=== PATIENT | female | born 1975 | race Caucasian/White ===

== ENCOUNTER → 2016-06-27 | Outpatient (REF) | payer OTHER ==
[~2016-06-27] MED LIST: FIBECHW4 PO; IBUP200T2 PO; MAXA10TA14 PO; MAXA5TAB10 PO; TOPA50TA PO; TRAZ50TA2 PO; [UNRECOGNIZED DRUG - OTHER] PO; flexeril PO
[2016-06-27 17:12] LABS: PERCENT SATURATION 16.6 % (13.2-37.4); TOTAL IRON BINDING CAPACITY 289 UG/DL (250-450)
[2016-06-30 10:10] LABS: CONTROL LINE HPYORI INT CTR LINE PRESENT
== END ==
LOC: M LAB REF 16:23
PROVIDERS: ATTEND Internal Medicine
DX: R53.83 Other fatigue (principal); K29.70 Gastritis, unspecified, without bleeding

== ENCOUNTER → 2016-07-04 | Outpatient (REF) | payer OTHER ==
[2016-07-08 00:06] LABS: ENDOMYSIAL ABY IgA Negative (Negative)
== END ==
LOC: M LAB REF 13:17
PROVIDERS: ATTEND Internal Medicine
DX: K29.70 Gastritis, unspecified, without bleeding (principal); K58.9 Irritable bowel syndrome, unspecified; R14.0 Abdominal distension (gaseous)

== ENCOUNTER → 2016-12-01 | Outpatient (REF) | payer OTHER ==
[2016-12-01 18:24] LABS: CALCIUM OXALATE CRYSTALS MODERATE
== END ==
LOC: M LAB REF 16:42
PROVIDERS: ATTEND Physician Assistant Medical
DX: N39.0 Urinary tract infection, site not specified (principal)

== ENCOUNTER 2017-01-26 19:48 | Emergency (ER) | payer OTHER ==
[~2017-01-26] VITALS: Ht 170.2 cm; Wt 90.9 kg
[2017-01-26] MEDS ORDERED: LINZ145C PO (20:00)
[2017-01-26] MEDS ORDERED: plaquenil PO (20:00)
[2017-01-26] MEDS ORDERED: DULO30CA PO (20:00)
[2017-01-26] MEDS ORDERED: ZANA4CAP PO (20:00)
[2017-01-26] MEDS ORDERED: ONDANSETRON 4MG/2ML VIAL (J2405) IV ONE (20:30)
[2017-01-26] MEDS ORDERED: NS 500 ML IV ONE (20:30)
[2017-01-26] MEDS ORDERED: KETOROLAC 30 MG/ML VIAL (J1885) IV ONE (20:30)
[2017-01-26] MEDS ORDERED: GASTROGRAFIN SOLUTION 30ML (Q9963) PO ONE ×2 (21:00)
[2017-01-26 21:06] LABS: BASO % 0.6 % (0.0-1.0); EOS # 0.2 K/mm3 (0.0-0.50); EOS % 1.8 % (0.0-3.0); LARGE UNSTAINED CELL # 0.2 K/mm3 (0.0-0.4); LYMPH # 2.1 K/mm3 (1.5-4.5); LYMPH % 22.5 % (24.0-44.0); MEAN CORPUSCULAR HEMOGLOBIN 31.2 pg (27.0-33.0); MEAN CORPUSCULAR HGB CONC 33.9 g/dl (32.0-36.5); MEAN CORPUSCULAR VOLUME 92.2 fl (80.0-96.0); MONO # 0.4 K/mm3 (0.0-0.8); MONO % 4.6 % (0.0-5.0); NEUTROPHILS # 6.4 K/mm3 (1.8-7.7); NEUTROPHILS % 68.5 % (36.0-66.0); PLATELET COUNT, AUTOMATED 305 k/mm3 (150-450); RED CELL DISTRIBUTION WIDTH 11.9 % (11.5-14.5); WHITE BLOOD COUNT 9.4 K/mm3 (4.0-10.0)
[2017-01-26 21:13] LABS: ALBUMIN 3.5 GM/DL (3.2-5.2); ALBUMIN/GLOBULIN RATIO 1.17 (1.00-1.93); ALKALINE PHOSPHATASE 70 U/L (45-117); ALT/SGPT 18 U/L (12-78); AMYLASE 83 U/L (25-115); ANION GAP 9 MEQ/L (8-16); AST/SGOT 10 U/L (15-37); BILIRUBIN,DIRECT < 0.1 MG/DL (0.0-0.2); BILIRUBIN,TOTAL 0.2 MG/DL (0.2-1.0); BLOOD UREA NITROGEN 21 MG/DL (7-18); CALCIUM LEVEL 8.8 MG/DL (8.5-10.1); CARBON DIOXIDE LEVEL 23 MEQ/L (21-32); CHLORIDE LEVEL 112 MEQ/L (98-107); CREATININE FOR GFR 0.98 MG/DL (0.55-1.02); GLOMERULAR FILTRATION RATE > 60.0 (>58); GLUCOSE, FASTING 110 MG/DL (70-105); POTASSIUM SERUM 3.8 MEQ/L (3.5-5.1); SODIUM LEVEL 144 MEQ/L (136-145); TOTAL PROTEIN 6.5 GM/DL (6.4-8.2)
[2017-01-26 21:29] LABS: CONTROL LINE UCG INT CTR LINE PRESENT
[2017-01-26 21:34] LABS: MICROSCOPIC INDICATED? MAN YES (NO)
[2017-01-26] MEDS ORDERED: ISOVUE-370 76% 100ML VIAL (Q9967) As Ordered ONE (22:29)
[2017-01-26 22:33] LABS: MICROSCOPIC EXAM PERFORMED
[2017-01-26 22:34] LABS: BACTERIA, URINE NONE SEEN; HYALINE CAST, URINE NONE SEEN /lpf (0-1); RBC, URINE 0-1 /hpf (0-3); SQUAMOUS EPITHELIAL CELL URINE SMALL AMOUNT /hpf (SMALL AMT); WBC, URINE 0-1 /hpf (0-3)
--- NOTE | 2017-01-26 23:50 | REPUSA ---
CLINICAL HISTORY: Abdominal pain. TECHNIQUE: Multiple axial, sagittal and coronal CT images were obtained through the abdomen and pelvi s after administration of oral and intravenous contrast material. COMMENTS: The liver is of uniform attenuation without mass or defect. There is no intra or extrahepatic biliary ductal dilatation. The spleen is normal. The gallbladder contains a 10 mm cholesterol stone. The ingram creas is of normal contour and attenuation characteristics. There is no evidence of adrenal mass. Both kidneys demonstrate prompt and equal nephrograms. The kidneys are normal in size, shape and conf iguration. There is no evidence of renal or ureteral mass. No renal or ureteral calculi are identifie d. There is no hydroureter or hydronephrosis. No evidence for appendicitis. There is no bowel wall thickening. No evidence for small or large leslie l obstruction. There is no evidence of abdominal ascites or lymphadenopathy. There is no evidence of intrinsic or extrinsic bladder mass. There is no pelvic ascites or lymphadeno anival. Images of the lung bases show no evidence of pleural or parenchymal mass. There are no pleural effusi ons. The bony structures are free of lytic or blastic lesions. The uterus and ovaries are unremarkable. Small hiatal hernia is noted. IMPRESSION: Gallstone. Consider correlation with right upper quadrant ultrasound. Small hiatal hernia Thank you for your kind referral of this patient.
[2017-01-27] MEDS ORDERED: ZOFR4TAB3 PO (00:12)
[2017-01-27] MEDS ORDERED: ONDANSETRON 4 MG ORAL DISINTEGRATING TAB (S0181) PO ONE (00:15)
[2017-01-27 00:17] VITALS: BP 145/83
[2017-04-01] MEDS ORDERED: MELO15TA4 PO (08:55)
[2017-04-01] MEDS ORDERED: HYDR-643 PO (08:55)
[2017-04-01] MEDS ORDERED: PREG50CA PO (08:55)
[2017-04-01] MEDS ORDERED: LACT10SO29 PO (08:55)
== END 2017-01-27 00:30 | disposition home or self-care (01) ==
LOC: M ED 19:48
DX: K80.20 Calculus of gallbladder without cholecystitis without obstruction (principal); K44.9 Diaphragmatic hernia without obstruction or gangrene; R10.13 Epigastric pain; R11.0 Nausea; R51 Headache; M79.7 Fibromyalgia; M06.9 Rheumatoid arthritis, unspecified; Z79.899 Other long term (current) drug therapy
CPT/HCPCS: 74177; 80048; 80076; 81000; 81025; 82150; 83690; 84703; 85025; 96374; 96375; 99283; J1885; J2405; Q9963; Q9967

== ENCOUNTER → 2017-02-23 | Outpatient (CLI) | payer OTHER ==
[~2017-02-23] MED LIST changes: +DULO30CA PO; +HYDR-643 PO; +LACT10SO29 PO; +LINZ145C PO; +MELO15TA4 PO; +PREG50CA PO; +ZANA4CAP PO; +ZOFR4TAB3 PO; +plaquenil PO
--- NOTE | 2017-02-23 14:08 | REPMRS ---
Patient History The patient states she had a clinical breast exam in 02/2017. Patient is nulliparous. No known family history of cancer. Taking hormonal contraceptives for 16 years. Digital Woman Screen Mammo: February 23, 2017 - Exam #: [id number] Bilateral CC and MLO view(s) were taken. Technologist: Acacia Higginbotham, Technologist Prior study comparison: February 28, 2016, digital woman screen mammo performed at [facility]. December 19, 2014, bilateral digital mammo screening bilat, performed at [facility]. FINDINGS: There are scattered fibroglandular densities. There has been no change in the appearance of the mammogram from the prior studies. There is a mild amount of scattered fibroglandular density which is fairly symmetric. There is no interval development of dominant mass, architectural distortion, or clustered microcalcification suggestive of malignancy. ASSESSMENT: BI-RADS/ACR category 1 mammogram. Negative. Recommendation Routine screening mammogram in 1 year (for women over age 40). This mammogram was interpreted with the aid of an FDA-approved computer-aided dectection system. Electronically Signed By: Philip Reyes MD 02/23/17 [id number]
== END ==
LOC: M WHC 10:27
PROVIDERS: ATTEND Nurse Practitioner Family
DX: Z12.31 Encounter for screening mammogram for malignant neoplasm of breast (principal)
CPT/HCPCS: G0202; G0463

== ENCOUNTER → 2017-03-10 | Outpatient (CLI) | payer OTHER ==
--- NOTE | 2017-03-11 06:50 | REP ---
Clinical: Right upper quadrant pain with history of cholelithiasis. Technique: Real time benton scale ultrasound examination using curved array transducer. Findings: Gallbladder demonstrates a fixed 12 mm gallstone at the neck of the gallbladder. The gallbladder is otherwise normal and without wall thickening or pericholecystic fluid. No biliary ductal dilatation is appreciated and the common bile duct measures 5.8 mm diameter. Pain with transducer pressure noted during examination. Fatty infiltration to the liver is appreciated without focal hepatic lesion identified. Visualized portions of the pancreas are unremarkable. The right kidney is normal in reniform shape without hydronephrosis and measures 11.9 x 6.1 x 4.4 cm. No ascites. Impression: 1. 12 mm gallbladder fixed at the gallbladder neck with suggestions for positive sonographic Jensen's sign. No biliary ductal dilatation, gallbladder wall thickening or pericholecystic fluid appreciated. Correlation is required and by ultrasound findings suggest biliary colic. 2. Fatty infiltration to the liver. See Signed by Bang Toro MD 03/11/2017 06:42 A
== END ==
LOC: M RAD 07:44
PROVIDERS: ATTEND Surgery
DX: K80.20 Calculus of gallbladder without cholecystitis without obstruction (principal)

== ENCOUNTER 2017-04-10 07:38 | Day surgery (SDC) | payer OTHER ==
[~2017-04-10] VITALS: Ht 172.7 cm; Wt 93.4 kg
[2017-04-10] MEDS ORDERED: PROPOFOL 200 MG/20 ML VIAL As Ordered ONE ×2 (07:58→10:33)
[2017-04-10] MEDS ORDERED: NEOSTIGMINE 10 MG/10 ML VIAL (J2710) As Ordered ONE (07:58)
[2017-04-10] MEDS ORDERED: LIDOCAINE 2% INJ 100 MG/5 ML SDV (FOR ANES.) As Ordered ONE (07:58)
[2017-04-10] MEDS ORDERED: HYDROmorphone HCL 2 MG/ML 1ML VIAL (J1170) As Ordered ONE (07:58)
[2017-04-10] MEDS ORDERED: fentaNYL 100 MCG/2 ML INJECTION (J3010) As Ordered ONE ×2 (07:58→11:24)
[2017-04-10] MEDS ORDERED: GLYCOPYRROLATE INJ 0.2 MG/ML 2 ML VIAL As Ordered ONE (07:58)
[2017-04-10] MEDS ORDERED: ROCURONIUM BROMIDE 50 MG/5 ML VIAL/SYRINGE As Ordered ONE (07:58)
[2017-04-10] MEDS ORDERED: MIDAZOLAM INJ 2 MG/2 ML VIAL (J2250) As Ordered ONE (07:58)
[2017-04-10] MEDS ORDERED: ONDANSETRON 4MG/2ML VIAL (J2405) As Ordered ONE ×2 (07:59→14:56)
[2017-04-10] MEDS ORDERED: dexameTHASONE 4 MG/ML 1ML VIAL (J1100) As Ordered ONE (07:59)
[2017-04-10] MEDS ORDERED: LR 1,000 ML IV ONE (08:00)
[2017-04-10] MEDS ORDERED: LIDOCAINE 1% MDV 20ML VIAL SQ PRN (08:00)
[2017-04-10 08:30] LABS: CONTROL LINE UCG INT CTR LINE PRESENT
[2017-04-10] MEDS ORDERED: BUPIVACAINE HCL 0.25% 30 ML VIAL As Ordered ONE (09:07)
[2017-04-10] MEDS ORDERED: PHENYLephrine HCL 500 MCG/5 ML (100MCG/ML) SYRINGE (J2370) As Ordered ONE (10:33)
[2017-04-10] MEDS ORDERED: LR 1,000 ML IV SCH (11:15)
[2017-04-10] MEDS ORDERED: MORPHINE 2 MG/ML 1ML SYRINGE IV PRN (11:15)
[2017-04-10] MEDS ORDERED: ONDANSETRON 4MG/2ML VIAL (J2405) IV PRN (11:15)
[2017-04-10] MEDS: fentaNYL 100 MCG/2 ML INJECTION (J3010) IV PRN ×4 (11:26→11:41)
[2017-04-10] MEDS ORDERED: NORCO, ANEXSIA 5/325MG TABLET (HYDROcodone/ACETAMINOPHEN) PO PRN (11:30)
[2017-04-10] MEDS ORDERED: PERCOCET 5MG/325MG TAB As Ordered ONE ×2 (12:27→14:00)
[2017-04-10] MEDS: PERCOCET 5MG/325MG TAB PO PRN ×2 (12:28→14:03)
[2017-04-10 15:15] VITALS: BP 131/74
--- NOTE | 2017-04-14 00:26 | RO ---
DATE OF PROCEDURE: 04/10/2017 PREOPERATIVE DIAGNOSIS: Symptomatic gallstones. POSTOPERATIVE DIAGNOSIS: Symptomatic gallstones. PROCEDURE PERFORMED: Laparoscopic cholecystectomy. SURGEON: Dr. Parveen Blankenship ANESTHESIA: General. INDICATIONS FOR THE PROCEDURE: Patient is a 42-year-old woman with a history of episodic upper abdominal pain. A recent ultrasound revealed cholelithiasis, and she is now for a laparoscopic cholecystectomy. DESCRIPTION OF PROCEDURE: The patient was placed supine on the operating table. The patient was placed under general endotracheal anesthesia. The patient's abdomen was prepped and draped in a sterile fashion. 0.25% Marcaine was infiltrated at each of the trocar sites prior to insertion. A short supraumbilical midline incision was made and deepened through the abundant subcutaneous fat to the fascia. The fascia was opened along the midline, and the peritoneum was opened bluntly. A Evelyn cannula was inserted, and the abdomen was insufflated with carbon dioxide gas. The laparoscope was placed. Initial examination showed a normal appearing liver. The gallbladder was fairly high up above the edge of the costal margin. The visualized portions of the small and large bowel appeared normal. The patient was tilted to a reverse Trendelenburg position and rolled slightly to the left. Two 5 mm trocars were placed in the right upper quadrant and a single 5 mm trocar was placed in the left upper quadrant. Graspers were inserted. The fundus of the gallbladder was grasped and elevated. The gallbladder did not appear acutely inflamed. Dissection was carried out at the gallbladder neck. The cystic duct and cholecystic artery were both readily identified. The artery was clipped and divided first. The cystic duct was then cleared of a small amount of surrounding tissue and then doubly clipped and divided. The gallbladder was then dissected free from the gallbladder bed using cautery dissection. Toward the fundus, the gallbladder was punctured and a small amount of bile was spilled into the subhepatic space. The gallbladder was completely removed from the gallbladder bed and placed in an Endopouch. The right upper quadrant was then irrigated. Inspection of the gallbladder bed showed no sign of bleeding and no bile leak. Thorough irrigation of the right upper quadrant was performed until the irrigant removed returned clear. Final inspection again showed no evidence of bleeding or bile leak. The patient was returned to a flat position. The abdomen was deflated and the trocars were removed. The gallbladder was recovered through the Evelyn site and sent for permanent pathology. There was at least one stone 6-8 mm in diameter palpable within the gallbladder. The fascia at the Evelyn site was then closed with interrupted simple sutures of #2-0 Vicryl. The skin incisions were all closed with buried Vicryl and Steri-Strips. Light dressings were applied. The patient tolerated the procedure well without apparent complication. She was awakened in the operating room, extubated and moved to the recovery room in stable condition. NIKOLE
== END 2017-04-10 15:30 | disposition home or self-care (01) ==
LOC: M SDC 07:38
PROVIDERS: ATTEND Surgery
DX: K80.10 Calculus of gallbladder with chronic cholecystitis without obstruction (principal); F41.9 Anxiety disorder, unspecified; K58.9 Irritable bowel syndrome, unspecified; M06.9 Rheumatoid arthritis, unspecified; M79.7 Fibromyalgia; G43.909 Migraine, unspecified, not intractable, without status migrainosus; G62.9 Polyneuropathy, unspecified; R55 Syncope and collapse; Z79.899 Other long term (current) drug therapy; Z87.81 Personal history of (healed) traumatic fracture
CPT/HCPCS: 47562; 84703; 88304; J1100; J1170; J2250; J2370; J2405; J2710; J3010

== ENCOUNTER → 2017-07-02 | Outpatient (CLI) | payer OTHER | LOC: M RAD 09:26 | DX: M15.0 Primary generalized (osteo)arthritis (principal) | CPT/HCPCS: 73501 ==

== ENCOUNTER 2018-03-22 09:30 | Emergency (ER) | payer OTHER ==
[2018-03-22 10:13] LABS: BASO # 0.1 10^3/uL (0.0-0.2); BASO % 0.9 % (0.0-1.0); EOS # 0.1 10^3/uL (0.0-0.50); HEMOGLOBIN 16.1 g/dl (12.0-15.5); IMMATURE GRANULOCYTE % 0.3 % (0-3.0); LYMPH # 1.7 10^3/uL (1.5-4.5); LYMPH % 21.6 % (24.0-44.0); MEAN CORPUSCULAR HEMOGLOBIN 30.9 pg (27.0-33.0); MEAN CORPUSCULAR HGB CONC 34.3 g/dl (32.0-36.5); MEAN CORPUSCULAR VOLUME 90.2 fl (80.0-96.0); MONO # 0.5 10^3/uL (0.0-0.8); MONO % 6.1 % (0.0-5.0); NEUTROPHILS # 5.5 10^3/uL (1.8-7.7); NEUTROPHILS % 70.1 % (36.0-66.0); PLATELET COUNT, AUTOMATED 284 10^3/uL (150-450); RED BLOOD COUNT 5.21 10^6/uL (4.00-5.40); RED CELL DISTRIBUTION WIDTH 11.8 % (11.5-14.5); WHITE BLOOD COUNT 7.8 10^3/uL (4.0-10.0)
[2018-03-22 10:25] LABS: INR 1.02; PROTHROMBIN TIME 13.5 SECONDS (12.1-14.4)
[2018-03-22] MEDS: NS 1,000 ML IV ×2 (10:32→12:20)
[2018-03-22 10:49] LABS: ALBUMIN 3.8 GM/DL (3.2-5.2); ALBUMIN/GLOBULIN RATIO 1.15 (1.00-1.93); ALKALINE PHOSPHATASE 80 U/L (45-117); ALT/SGPT 22 U/L (12-78); ANION GAP 7 MEQ/L (8-16); AST/SGOT 12 U/L (7-37); BILIRUBIN,DIRECT 0.1 MG/DL (0.0-0.2); BILIRUBIN,TOTAL 0.4 MG/DL (0.2-1.0); BLOOD UREA NITROGEN 14 MG/DL (7-18); CALCIUM LEVEL 8.3 MG/DL (8.5-10.1); CARBON DIOXIDE LEVEL 24 MEQ/L (21-32); CHLORIDE LEVEL 112 MEQ/L (98-107); CK-MB VALUE MASS < 1.0 NG/ML (<3.6); CPK CREATINE PHOSPHOKINASE 38 U/L (26-192); CREATININE FOR GFR 0.91 MG/DL (0.55-1.30); FREE T4 0.89 NG/DL (0.76-1.46); GLOMERULAR FILTRATION RATE > 60.0 (>58); GLUCOSE, FASTING 99 MG/DL (70-100); LIPASE 176 U/L (73-393); MB/CK RELATIVE INDEX 2.63 (< OR =4); NT-PRO BNP 57 PG/ML (<125); POTASSIUM SERUM 3.7 MEQ/L (3.5-5.1); SODIUM LEVEL 143 MEQ/L (136-145); THYROID STIMULATING HORMONE 0.743 uIU/ML (0.358-3.740); TOTAL PROTEIN 7.1 GM/DL (6.4-8.2); TROPONIN I < 0.02 NG/ML (< 0.10)
[2018-03-22 15:49] LABS: CK-MB VALUE MASS < 1.0 NG/ML (<3.6); CPK CREATINE PHOSPHOKINASE 28 U/L (26-192); MB/CK RELATIVE INDEX 3.57 (< OR =4); TROPONIN I < 0.02 NG/ML (< 0.10)
[2018-03-22] MEDS: ASPIRIN 81 MG CHEW TABLET PO (16:13)
== END 2018-03-22 16:16 | disposition home or self-care (01) ==
LOC: M ED 09:30
DX: R07.9 Chest pain, unspecified (principal); R11.0 Nausea; R42 Dizziness and giddiness; R61 Generalized hyperhidrosis; M79.7 Fibromyalgia; G43.909 Migraine, unspecified, not intractable, without status migrainosus; M06.9 Rheumatoid arthritis, unspecified; K58.9 Irritable bowel syndrome, unspecified; Z82.49 Family history of ischemic heart disease and other diseases of the circulatory system; Z83.3 Family history of diabetes mellitus; Z79.899 Other long term (current) drug therapy
CPT/HCPCS: 71045

== ENCOUNTER → 2018-05-25 | Outpatient (CLI) | payer OTHER | LOC: M WHC 08:01 | DX: Z12.31 Encounter for screening mammogram for malignant neoplasm of breast (principal); N60.31 Fibrosclerosis of right breast; N60.32 Fibrosclerosis of left breast | CPT/HCPCS: 77067 ==

== ENCOUNTER → 2018-09-23 | Outpatient (CLI) | payer OTHER ==
[~2018-09-23] MED LIST changes: -DULO30CA PO; +DULO30CA9 PO; +IBUP1TAB7 PO; +LEXA1TAB2 PO; +MELO15TA28 PO; -MELO15TA4 PO; +TOPA100T12 PO; +ZOFR4TAB14 PO; -ZOFR4TAB3 PO
[2018-09-23 14:35] LABS: BASO # 0.1 10^3/uL (0.0-0.2); BASO % 0.5 % (0.0-1.0); EOS # 0.1 10^3/uL (0.0-0.50); EOS % 0.5 % (0.0-3.0); HEMATOCRIT 43.1 % (36.0-47.0); HEMOGLOBIN 14.6 g/dl (12.0-15.5); LYMPH # 1.7 10^3/uL (1.5-4.5); MEAN CORPUSCULAR HGB CONC 33.9 g/dl (32.0-36.5); MEAN CORPUSCULAR VOLUME 91.5 fl (80.0-96.0); MONO # 0.8 10^3/uL (0.0-0.8); MONO % 7.1 % (0.0-5.0); NEUTROPHILS # 7.9 10^3/uL (1.8-7.7); NEUTROPHILS % 75.4 % (36.0-66.0); PLATELET COUNT, AUTOMATED 294 10^3/uL (150-450); RED BLOOD COUNT 4.71 10^6/uL (4.00-5.40); WHITE BLOOD COUNT 10.5 10^3/uL (4.0-10.0)
[2018-09-23 15:02] LABS: ALBUMIN 3.4 GM/DL (3.2-5.2); ALT/SGPT 18 U/L (12-78); BILIRUBIN,TOTAL 0.3 MG/DL (0.2-1.0); BLOOD UREA NITROGEN 15 MG/DL (7-18); C REACTIVE PROTEIN QUANTITATIV 1.01 MG/DL (0.00-0.30); CALCIUM LEVEL 8.2 MG/DL (8.5-10.1); CARBON DIOXIDE LEVEL 25 MEQ/L (21-32); CHLORIDE LEVEL 112 MEQ/L (98-107); CREATININE FOR GFR 0.86 MG/DL (0.55-1.30); GLOMERULAR FILTRATION RATE > 60.0 (>58); GLUCOSE, FASTING 91 MG/DL (70-100); POTASSIUM SERUM 3.8 MEQ/L (3.5-5.1); SODIUM LEVEL 142 MEQ/L (136-145); TOTAL PROTEIN 6.2 GM/DL (6.4-8.2)
[2018-09-23 15:40] LABS: ERYTHROCYTE SEDIMENTATION RATE 3 mm/hr (0-20)
--- NOTE | 2018-09-24 01:30 | REP ---
Clinical: Cough . Comparison: 03/22/2018 . Technique: PA and lateral. Findings: The mediastinum and cardiac silhouette are normal. The lung mahmood are clear and without acute consolidation, effusion, or pneumothorax. The skeletal structures are intact and normal. Impression: 1. No acute cardiopulmonary process. Electronically Signed by Bang Toro MD 09/24/2018 01:20 A
[2018-09-28 00:06] LABS: EBV AB TO NUCLEAR ANTIGEN 32.3 U/mL (0.0-17.9); EBV VIRAL CAPSID AG IgG 19.9 U/mL (0.0-17.9); EBV VIRAL CAPSID AG IgM <36.0 U/mL (0.0-35.9)
== END ==
LOC: M LAB 14:14
PROVIDERS: ATTEND Physician Assistant
DX: G93.3 Postviral and related fatigue syndromes (principal)

== ENCOUNTER → 2018-10-25 | Outpatient (CLI) | payer OTHER ==
[~2018-10-25] MED LIST changes: +PLAQ200T4 PO
--- NOTE | 2018-10-26 08:05 | REP ---
MRI left shoulder without contrast: History: Left shoulder pain. No comparison radiographs. Technique: Axial, oblique coronal, and oblique sagittal imaging planes were utilized. T1 and T2-weighted scans were obtained with and without fat saturation. MRI findings: Glenohumeral and acromioclavicular joints are normally aligned. There is mild osteoarthritic hypertrophy at the AC joint. Minimal marrow edema is seen on either side of this articulation. There is some mild indentation on the musculotendinous junction of the supraspinatus. Cortical and medullary bone signal intensity are normal. There is tendonitis tendinosis change in the distal supraspinatus tendon with some swelling and increased signal intensity diffusely on oblique coronal T1-weighted scans. No focal rotator cuff lesion is seen on oblique coronal T2-weighted scans. Infraspinatus, subscapularis, and biceps tendons appear intact. There is no evidence of anterior or posterior labral tear. Superior labrum appears intact. 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 Mild AC joint osteoarthritic change. Electronically Signed by Pradeep Reyes MD 10/26/2018 05:12 P
== END | disposition home or self-care (01) ==
LOC: M RAD 14:53
PROVIDERS: ATTEND Internal Medicine Rheumatology
DX: M19.012 Primary osteoarthritis, left shoulder (principal); M75.82 Other shoulder lesions, left shoulder; M25.512 Pain in left shoulder

== ENCOUNTER 2018-11-16 06:36 | Day surgery (SDC) | payer OTHER ==
[~2018-11-16] VITALS: Ht 172.7 cm; Wt 90.6 kg
[~2018-11-16 06:36] MED LIST changes: +NS 1,000 ML IV ONE
[2018-11-16] MEDS ORDERED: LIDOCAINE 2% INJ 100 MG/5 ML SDV (FOR ANES.) As Ordered ONE (07:05)
[2018-11-16] MEDS ORDERED: PROPOFOL 200 MG/20 ML VIAL As Ordered ONE ×2 (07:05→07:43)
--- NOTE | 2018-11-16 08:11 | ROOR ---
Patient Name: Melanie Salinas Procedure Date: 11/16/2018 7:31 AM Date of : 1975 Age: 43 Room: [facility] Gender: Female Note Status: Finalized Procedure: Colonoscopy Indications: Chronic diarrhea, Change in bowel habits Providers: Parveen Blankenship MD Referring MD: Rai BOUDREAUX DO Requesting Provider: Medicines: Monitored Anesthesia Care Complications: No immediate complications. Procedure: Pre-Anesthesia Assessment: - Prior to the procedure, a History and Physical was performed, and patient medications and allergies were reviewed. The patient is competent. The risks and benefits of the procedure and the sedation options and risks were discussed with the patient. All questions were answered and informed consent was obtained. Patient identification and proposed procedure were verified by the physician, the nurse and the anesthesiologist in the procedure room. Mental Status Examination: alert and oriented. Airway Examination: normal oropharyngeal airway and neck mobility. CV Examination: regular rate and rhythm. Prophylactic Antibiotics: The patient does not require prophylactic antibiotics. Prior Anticoagulants: The patient has taken no previous anticoagulant or antiplatelet agents. ASA Grade Assessment: II - A patient with mild systemic disease. After reviewing the risks and benefits, the patient was deemed in satisfactory condition to undergo the procedure. The anesthesia plan was to use monitored anesthesia care (MAC). Immediately prior to administration of medications, the patient was re-assessed for adequacy to receive sedatives. The heart rate, respiratory rate, oxygen saturations, blood pressure, adequacy of pulmonary ventilation, and response to care were monitored throughout the procedure. The physical status of the patient was re-assessed after the procedure. The was introduced through the anus and advanced to the cecum, identified by appendiceal orifice and ileocecal valve. The colonoscopy was performed without difficulty. The patient tolerated the procedure well. The quality of the bowel preparation was excellent. Findings: The perianal and digital rectal examinations were normal. A 4 mm polyp was found in the descending colon. The polyp was sessile. Biopsies were taken with a cold forceps for histology. Normal mucosa was found in the entire colon. Biopsies for histology were taken with a cold forceps from the entire colon for evaluation of microscopic colitis. Impression: - One 4 mm polyp in the descending colon. Biopsied. - Normal mucosa in the entire examined colon. Biopsied. Recommendation: - Discharge patient to home. - Resume previous diet. - Continue present medications. - Await pathology results. Parveen Blankenship MD Parveen Blankenship MD 11/16/2018 8:11:17 AM Electronically signed by Parveen Blankenship MD Number of Addenda: 0 Note Initiated On: 11/16/2018 7:31 AM Estimated Blood Loss: Estimated blood loss was minimal.
[2018-11-16 08:30] VITALS: BP 109/61
== END 2018-11-16 08:40 | disposition home or self-care (01) ==
LOC: M OPP 06:36
PROVIDERS: ATTEND Surgery
DX: D12.4 Benign neoplasm of descending colon (principal); R19.7 Diarrhea, unspecified

== ENCOUNTER 2018-12-09 13:24 | Outpatient (RCR) | payer OTHER ==
[~2018-12-09 13:24] MED LIST changes: -NS 1,000 ML IV ONE
== END 2018-12-12 ==
LOC: M PT 13:24
PROVIDERS: ATTEND Physician Assistant
DX: M50.30 Other cervical disc degeneration, unspecified cervical region (principal)
CPT/HCPCS: 97110; 97140; 97162; G0283

== ENCOUNTER 2018-12-15 11:45 | Outpatient (RCR) | payer OTHER | END 2019-01-12 | LOC: M PT 11:45 | PROVIDERS: ATTEND Physician Assistant | DX: Z47.89 Encounter for other orthopedic aftercare (principal); M50.30 Other cervical disc degeneration, unspecified cervical region | CPT/HCPCS: 97110; 97140; G0283 ==

== ENCOUNTER → 2018-12-29 | Outpatient (CLI) | payer OTHER ==
--- NOTE | 2018-12-29 09:21 | REP ---
MRI CERVICAL SPINE WITHOUT CONTRAST: HISTORY: Cervical disc degeneration. Neck pain radiating down the left shoulder. History rheumatoid arthritis. Comparison radiographs of the cervical spine are reviewed from June 07, 2013. TECHNIQUE: Sagittal and axial T1- and T2-weighted scans are acquired in the usual fashion with and without fat saturation. Sequences include spin echo, turbo spin echo, and STIR imaging sequences. MRI FINDINGS: Cervical vertebral body heights are preserved. Alignment is normal. Cortical and medullary bone signal intensity are normal. The cervical cord is normal in coarse, caliber and signal intensity on T1- and T2-weighted scans. At the C6-7 disc level, there is a small central focal disc protrusion effacing the ventral subarachnoid space. No cord compression is seen. No neural foraminal narrowing is seen. The other cervical disc spaces are intact. There is minimal central disc bulging at C5-6. No neural foraminal narrowing or central canal stenosis is seen. Facet joints are normally aligned. No extra vertebral abnormality is appreciated. IMPRESSION: Small central disc protrusion at C6-7. Otherwise negative MRI study of the cervical spine. Electronically Signed by Pradeep Reyes MD 12/29/2018 10:43 A
== END ==
LOC: M RAD 07:08
PROVIDERS: ATTEND Physician Assistant
DX: M50.30 Other cervical disc degeneration, unspecified cervical region (principal)

== ENCOUNTER → 2019-03-07 | Outpatient (CLI) | payer OTHER ==
[2019-03-07 08:38] LABS: BASO # 0.1 10^3/uL (0.0-0.2); BASO % 0.9 % (0.0-1.0); EOS # 0.1 10^3/uL (0.0-0.5); EOS % 0.8 % (0.0-3.0); HEMATOCRIT 46.3 % (36.0-47.0); HEMOGLOBIN 15.6 g/dl (12.0-15.5); LYMPH # 1.6 10^3/uL (1.5-5.0); LYMPH % 24.6 % (24.0-44.0); MEAN CORPUSCULAR HEMOGLOBIN 31.9 pg (27.0-33.0); MEAN CORPUSCULAR HGB CONC 33.7 g/dl (32.0-36.5); MEAN CORPUSCULAR VOLUME 94.7 fl (80.0-96.0); MONO # 0.5 10^3/uL (0.0-0.8); MONO % 7.2 % (0.0-5.0); NEUTROPHILS # 4.3 10^3/uL (1.5-8.5); NEUTROPHILS % 66.2 % (36.0-66.0); PLATELET COUNT, AUTOMATED 299 10^3/uL (150-450); RED BLOOD COUNT 4.89 10^6/uL (4.00-5.40); WHITE BLOOD COUNT 6.4 10^3/uL (4.0-10.0)
[2019-03-07 09:10] LABS: ALBUMIN 3.5 GM/DL (3.2-5.2); ALT/SGPT 15 U/L (12-78); BILIRUBIN,TOTAL 0.4 MG/DL (0.2-1.0); BLOOD UREA NITROGEN 15 MG/DL (7-18); CALCIUM LEVEL 8.8 MG/DL (8.5-10.1); CARBON DIOXIDE LEVEL 24 MEQ/L (21-32); CHLORIDE LEVEL 108 MEQ/L (98-107); CHOLESTEROL LEVEL 189 MG/DL (<200); CHOLESTEROL RISK RATIO 4.295 (<5); GLOMERULAR FILTRATION RATE > 60.0 (>58); GLUCOSE, FASTING 83 MG/DL (70-100); HDL CHOLESTEROL 44 MG/DL (>40); LDL CHOLESTEROL 106 MG/DL (<100); NON-HDL-C 145 MG/DL; SODIUM LEVEL 141 MEQ/L (136-145); TOTAL PROTEIN 6.5 GM/DL (6.4-8.2); TRIGLYCERIDES LEVEL 197 MG/DL (<150)
== END ==
LOC: M LAB 07:59
PROVIDERS: ATTEND Physician Assistant
DX: Z00.00 Encounter for general adult medical examination without abnormal findings (principal); Z13.0 Encounter for screening for diseases of the blood and blood-forming organs and certain disorders involving the immune mechanism; Z13.1 Encounter for screening for diabetes mellitus

== ENCOUNTER → 2019-05-24 | Outpatient (CLI) | payer OTHER | LOC: M LAB 07:42 | PROVIDERS: ATTEND Physical Medicine & Rehabilitation | DX: M47.22 Other spondylosis with radiculopathy, cervical region (principal) ==

== ENCOUNTER → 2019-06-02 | Outpatient (CLI) | payer OTHER | LOC: M LAB 07:39 | PROVIDERS: ATTEND Physical Medicine & Rehabilitation | DX: M47.22 Other spondylosis with radiculopathy, cervical region (principal) ==

== ENCOUNTER → 2019-07-12 | Outpatient (REF) | payer OTHER | LOC: M SFHCWAGY 10:57 | PROVIDERS: ATTEND Nurse Practitioner Family | DX: Z12.4 Encounter for screening for malignant neoplasm of cervix (principal) | CPT/HCPCS: 87624; G0123 ==

== ENCOUNTER → 2019-07-12 | Outpatient (CLI) | payer OTHER ==
--- NOTE | 2019-07-12 17:41 | REPMRS ---
Patient History The patient states she had a clinical breast exam in 2019. No known family history of cancer. Taking hormonal contraceptives for 17 years. 3D TOMOSYNTHESIS WAS PERFORMED. The Eliezer Diaz lifetime risk for breast cancer is 13.8%. Digital Woman Screen Mammo: July 12, 2019 - Exam #: [id number] Bilateral CC and MLO view(s) were taken. Technologist: Kassidy Pearson, Technologist Prior study comparison: May 25, 2018, bilateral digital woman screen mammo performed at [facility] [place]. February 23, 2017, digital woman screen mammo performed at [facility] [place]. FINDINGS: The breast tissue is heterogeneously dense. This may lower the sensitivity of mammography. There has been no change in the appearance of the mammogram from the prior studies. There is a moderate amount of residual fibroglandular tissue which is fairly symmetric. There is no interval development of dominant mass, areas of architectural distortion, or clustered microcalcification typical of malignancy. Assessment: BI-RADS/ACR category 1 mammogram. Negative Mammogram. Recommendation Routine screening mammogram in 1 year (for women over age 40). This mammogram was interpreted with the aid of an FDA-approved computer-aided dectection system. Electronically Signed By: Damian Frye MD 07/12/19 [id number]
== END ==
LOC: M WHC 15:37
PROVIDERS: ATTEND Nurse Practitioner Family
DX: Z12.31 Encounter for screening mammogram for malignant neoplasm of breast (principal)
CPT/HCPCS: 77063; 77067; G0463

== ENCOUNTER → 2020-07-24 | Outpatient (CLI) | payer OTHER ==
[~2020-07-24] MED LIST changes: -LACT10SO29 PO; +LACT20EL PO
--- NOTE | 2020-07-24 10:17 | REPMRS ---
Patient History The patient states she had a clinical breast exam in July 2020. Patient is nulliparous. No known family history of cancer. Taking hormonal contraceptives for 18 years. Digital Woman Screen Mammo: July 24, 2020 - Exam #: [id number] Bilateral CC and MLO view(s) were taken. Technologist: RT Sarah Prior study comparison: July 12, 2019, bilateral digital woman screen mammo performed at [facility]. May 25, 2018, bilateral digital woman screen mammo performed at [facility]. February 23, 2017, digital woman screen mammo performed at [facility]. FINDINGS: There are scattered fibroglandular densities. The Volpara volumetric breast density category is:B. There has been no change in the appearance of the mammogram from the prior studies. There is a mild amount of scattered fibroglandular density which is fairly symmetric. There is no interval development of dominant mass, architectural distortion, or grouped microcalcification suggestive of malignancy. 3-D tomosynthesis shows no additional findings. Assessment: BI-RADS/ACR category 1 mammogram. Negative Mammogram. Recommendation Routine screening mammogram of both breasts in 1 year (for women over age 40). This patient's [facility] Lifetime Breast Cancer Risk is estimated at 13.7 %. This mammogram was interpreted with the aid of an FDA-approved computer-aided dectection system. Electronically Signed By: Philip Reyes MD 07/24/20 [id number]
== END ==
LOC: M WHC 08:38
PROVIDERS: ATTEND Nurse Practitioner Family
DX: Z12.31 Encounter for screening mammogram for malignant neoplasm of breast (principal); Z79.3 Long term (current) use of hormonal contraceptives
CPT/HCPCS: 77063; 77067; G0463

== ENCOUNTER → 2021-03-25 | Outpatient (CLI) | payer OTHER ==
--- NOTE | 2021-03-26 10:12 | REP ---
INDICATION: LT HIP PAIN injury September 2019 in December 2019, pain COMPARISON: None. TECHNIQUE: Coronal T1, STIR through the pelvis, axial, coronal, sagittal T2 fat sat left hip. FINDINGS: The visualized osseous structures demonstrate normal bone marrow signal. There is no bone marrow edema or occult fracture. There is no evidence of avascular necrosis. Labrum demonstrates no evidence of a tear. At the junction of the labrum and cartilage a sulcus is present, which appears to be symmetrical on the right side as well. There is no paralabral cyst. There are findings compatible with mild greater trochanteric tendonobursitis. There is no joint effusion. There is a fibroid in the fundus of the uterus measuring approximately 1.6 cm in diameter. IMPRESSION: Mild greater trochanteric tendonobursitis. No definite labral tear. Fundal fibroid in the uterus measures 1.6 cm in diameter. <Electronically signed by Damian Frye > 03/26/21 [id number]
== END ==
LOC: M RAD 16:35
PROVIDERS: ATTEND Internal Medicine Rheumatology
DX: M70.72 Other bursitis of hip, left hip (principal); M25.552 Pain in left hip

== ENCOUNTER → 2021-10-22 | Outpatient (REF) | payer OTHER | LOC: M PLALAB 07:56 | PROVIDERS: ATTEND Advanced Practice Midwife | DX: Z12.4 Encounter for screening for malignant neoplasm of cervix (principal) | CPT/HCPCS: 87624; G0123 ==

== ENCOUNTER → 2021-10-22 | Outpatient (CLI) | payer OTHER | LOC: M WHC 09:06 | PROVIDERS: ATTEND Advanced Practice Midwife | DX: Z12.31 Encounter for screening mammogram for malignant neoplasm of breast (principal) ==

== ENCOUNTER → 2023-07-13 | Outpatient (REF) | payer OTHER ==
[~2023-07-13] MED LIST changes: -MAXA10TA14 PO; +RIZA10TA64 PO
== END ==
LOC: M SFHCWAGY 10:25
PROVIDERS: ATTEND Advanced Practice Midwife
DX: Z12.4 Encounter for screening for malignant neoplasm of cervix (principal)

== ENCOUNTER → 2023-07-13 | Outpatient (CLI) | payer OTHER | LOC: M WHC 08:09 | PROVIDERS: ATTEND Advanced Practice Midwife | DX: Z12.31 Encounter for screening mammogram for malignant neoplasm of breast (principal) | CPT/HCPCS: 77063; 77067; G0123; G0463 ==

== ENCOUNTER → 2023-08-26 | Outpatient (REF) | LOC: M PLAIMG 14:11 | PROVIDERS: ATTEND Internal Medicine | DX: R52 Pain, unspecified (principal); M46.96 Unspecified inflammatory spondylopathy, lumbar region ==

== ENCOUNTER → 2023-12-30 | Outpatient (CLI) | payer OTHER ==
[~2023-12-30] MED LIST changes: +ISOVUE-300 61% 100ML VIAL As Ordered ONE; +LIDOCAINE 1% MDV 20ML VIAL As Ordered ONE; +TRIAMCINOLONE ACETONIDE SUSP 40MG/ML 1ML VIAL As Ordered ONE
== END ==
LOC: M RAD 14:27
PROVIDERS: ATTEND Orthopaedic Surgery
DX: M25.552 Pain in left hip (principal)
CPT/HCPCS: 20610; 77002; J3301; Q9967